=== PATIENT | female | born 1945 | race Caucasian/White ===

== ENCOUNTER 2021-10-09 19:17 | Inpatient (IN) | payer MEDICARE, OTHER ==
[~2021-10-09] VITALS: Ht 157.5 cm; Wt 60.3 kg
[~2021-10-09 19:17] MED LIST: ALEN70TA80 PO; ESOM20CA PO; FENO200C PO; FURO-145 PO; LOSA100T3 PO; PROM6.256 PO; SUCR1ORA15 PO
[2021-10-09 19:30] VITALS: BP 190/71
[2021-10-09 20:00] VITALS: BP 190/71
[2021-10-09] MEDS ORDERED: URSO250T12 PO (20:24)
[2021-10-09] MEDS ORDERED: DICY10CA13 PO (20:24)
[2021-10-09] MEDS ORDERED: ALENDRONATE 70 MG TABLET PO SCH (21:00)
[2021-10-09] MEDS ORDERED: ACETAMINOPHEN 325 MG TABLET PO PRN (21:30)
[2021-10-09] MEDS ORDERED: hydrALAZINE HCL 50 MG TABLET PO ONE (21:30)
[2021-10-09] MEDS ORDERED: CEFTRIAXONE 1 G in IV D5W 50 ML IV SCH (21:30)
[2021-10-09] MEDS ORDERED: ONDANSETRON HCL/PF 4 MG/2 ML VIAL IVP PRN (21:30)
[2021-10-09] MEDS ORDERED: MAG HYDROX/AL HYDROX/SIMETH 30 ML UDC PO PRN (21:30)
[2021-10-09] MEDS ORDERED: MEROPENEM 1 G VIAL IV ONE (21:40)
[2021-10-09] MEDS: ENOXAPARIN SODIUM 40 MG/0.4 ML DISP.SYRIN SQ SCH (21:47)
[2021-10-09] MEDS: MEROPENEM 1 G in IV NS 0.9% 100 ML IV SCH (21:53)
[2021-10-10] VITALS: BP 146/47
[2021-10-10 04:00] VITALS: BP 151/59
[2021-10-10] MEDS ORDERED: MEROPENEM 500 MG VIAL IV ONE ×2 (05:55→05:57)
[2021-10-10] MEDS: MEROPENEM 1 G in IV NS 0.9% 100 ML IV SCH ×3 (06:06→20:58)
[2021-10-10 06:26] LABS: BASOPHILS % (AUTO) 0.2 % (0.0-2.0); EOSINOPHILS % (AUTO) 0.3 % (0.0-6.0); HEMATOCRIT 27 % (33-45); HEMOGLOBIN 8.5 g/dL (11.5-14.8); LYMPHOCYTES # (AUTO) 0.5 K/uL (0.8-4.8); LYMPHOCYTES % (AUTO) 6.5 % (20.0-44.0); MEAN CORPUSCULAR HGB CONC 32 g/dl (31.0-36.0); MEAN CORPUSCULAR VOLUME 75 fL (82-100); MONOCYTES # (AUTO) 1.2 K/uL (0.1-1.30); MONOCYTES % (AUTO) 16.6 % (2.0-12.0); NEUTROPHILS # (AUTO) 5.4 K/uL (1.8-8.9); NEUTROPHILS % (AUTO) 76.4 % (43.0-81.0); PLATELET COUNT (AUTO) 209 K/uL (150-450); RED BLOOD CELL COUNT(AUTO) 3.58 MIL/uL (4.0-5.2); WHITE BLOOD COUNT (AUTO) 7.1 K/uL (4.3-11.0)
[2021-10-10 07:10] LABS: CHOLESTEROL 135 mg/dL (<200); HDL CHOLESTEROL 55 mg/dL (40-60); LDL 57 mg/dL (0-99); TRIGLYCERIDES 122 mg/dL (30-150)
[2021-10-10 07:18] LABS: CARBON DIOXIDE 24 mmol/L (21-32); CHLORIDE 105 mmol/L (98-107); GLUCOSE 89 mg/dL (74-106); MAGNESIUM 1.8 mg/dL (1.8-2.4); PHOSPHORUS 3.1 mg/dL (2.5-4.9); POTASSIUM 3.7 mmol/L (3.5-5.1); SODIUM SERUM 137 mmol/L (136-145); UREA NITROGEN, BLOOD 15 mg/dL (7-18)
[2021-10-10] MEDS ORDERED: SUCRALFATE 1 G/10 ML UDC PO SCH (07:30)
[2021-10-10 08:00] VITALS: BP 165/48
[2021-10-10] MEDS: PANTOPRAZOLE 40 MG TABLET.DR PO SCH (08:30)
[2021-10-10] MEDS: FUROSEMIDE 20 MG TABLET PO SCH (08:30)
[2021-10-10] MEDS: LOSARTAN POTASSIUM 50 MG TABLET PO SCH (08:31)
[2021-10-10] MEDS ORDERED: ESOMEPRAZOLE MAG TRIHYDRATE 20 MG CAPSULE.DR PO SCH (09:00)
[2021-10-10] MEDS ORDERED: Medication Not On Formulary EA (Fenofibrate,Micronized (Fenofibrate) 200 MG) PO SCH (09:00)
[2021-10-10 09:58] LABS: IRON, SERUM 17 ug/dl (50-175); TOTAL IRON BINDING CAPACITY 211 ug/dl (250-450)
[2021-10-10 10:08] LABS: FERRITIN 61 ng/mL (8-388)
[2021-10-10 11:51] LABS: BILIRUBIN,DIRECT 0.1 mg/dL (0.0-0.2); BILIRUBIN,TOTAL 0.4 mg/dL (0.2-1.0); TOTAL PROTEIN, SERUM 5.8 g/dL (6.4-8.2)
[2021-10-10 12:00] VITALS: BP 153/69
[2021-10-10] MEDS: SOD FERRIC GLUC 125 MG in IV NS 0.9% 100 ML IV SCH (15:22)
[2021-10-10] MEDS: AMLODIPINE BESYLATE 10 MG TABLET PO SCH (15:25)
[2021-10-10 15:57] LABS: LYMPHOCYTES % (MANUAL) 10 % (16-48); MONOCYTES % (MANUAL) 15 % (0-11.0); NEUTROPHILS % (MANUAL) 75 (42-76)
[2021-10-10 16:00] VITALS: BP 146/76
[2021-10-10 20:00] VITALS: BP_SYST 182; BP_SYST 194; BP_DIAS 56; BP_DIAS 63
[2021-10-10] MEDS ORDERED: hydrALAZINE HCL IV 20 MG VIAL IV PRN (23:00)
[2021-10-10] MEDS: ENOXAPARIN SODIUM 40 MG/0.4 ML DISP.SYRIN SQ SCH (23:02)
[2021-10-11] VITALS (7 sets, daily range): BP systolic 135–181; BP diastolic 47–68
[2021-10-11 06:51] LABS: BASOPHILS % (AUTO) 0.1 % (0.0-2.0); EOSINOPHILS % (AUTO) 0.4 % (0.0-6.0); HEMATOCRIT 26 % (33-45); HEMOGLOBIN 8.4 g/dL (11.5-14.8); LYMPHOCYTES # (AUTO) 0.7 K/uL (0.8-4.8); LYMPHOCYTES % (AUTO) 9.5 % (20.0-44.0); MEAN CORPUSCULAR HGB CONC 33 g/dl (31.0-36.0); MEAN CORPUSCULAR VOLUME 73 fL (82-100); MONOCYTES # (AUTO) 1.1 K/uL (0.1-1.30); MONOCYTES % (AUTO) 14.5 % (2.0-12.0); NEUTROPHILS # (AUTO) 5.5 K/uL (1.8-8.9); NEUTROPHILS % (AUTO) 75.5 % (43.0-81.0); PLATELET COUNT (AUTO) 235 K/uL (150-450); RED BLOOD CELL COUNT(AUTO) 3.52 MIL/uL (4.0-5.2); WHITE BLOOD COUNT (AUTO) 7.3 K/uL (4.3-11.0)
[2021-10-11 07:25] LABS: CALCIUM, SERUM 8.9 mg/dL (8.5-10.1); CREATININE 0.9 mg/dL (0.6-1.3); POTASSIUM 3.5 mmol/L (3.5-5.1)
[2021-10-11] MEDS: URSODIOL 300 MG CAPSULE PO SCH ×3 (09:00→17:21)
[2021-10-11] MEDS: FUROSEMIDE 20 MG TABLET PO SCH (10:01)
[2021-10-11] MEDS: PANTOPRAZOLE 40 MG TABLET.DR PO SCH (10:01)
[2021-10-11] MEDS: CARVEDILOL 6.25 MG TABLET PO SCH ×2 (10:02→17:21)
[2021-10-11] MEDS: AMLODIPINE BESYLATE 10 MG TABLET PO SCH (10:02)
[2021-10-11] MEDS: hydrALAZINE HCL 50 MG TABLET PO SCH ×3 (10:03→17:21)
[2021-10-11] MEDS: LOSARTAN POTASSIUM 50 MG TABLET PO SCH (10:03)
[2021-10-11] MEDS: MEROPENEM 1 G in IV NS 0.9% 100 ML IV SCH ×2 (10:05→21:37)
[2021-10-11] MEDS: SOD FERRIC GLUC 125 MG in IV NS 0.9% 100 ML IV SCH (14:23)
[2021-10-11] MEDS: ENOXAPARIN SODIUM 40 MG/0.4 ML DISP.SYRIN SQ SCH (22:16)
[2021-10-12] VITALS: BP 142/53
[2021-10-12 00:15] VITALS: BP 142/53
[2021-10-12 04:00] VITALS: BP 138/64
[2021-10-12 04:15] VITALS: BP 138/64
[2021-10-12 06:39] LABS: BASOPHILS % (AUTO) 0.1 % (0.0-2.0); EOSINOPHILS % (AUTO) 1.2 % (0.0-6.0); HEMATOCRIT 27 % (33-45); HEMOGLOBIN 8.5 g/dL (11.5-14.8); LYMPHOCYTES # (AUTO) 0.6 K/uL (0.8-4.8); LYMPHOCYTES % (AUTO) 9.7 % (20.0-44.0); MEAN CORPUSCULAR HGB CONC 32 g/dl (31.0-36.0); MEAN CORPUSCULAR VOLUME 75 fL (82-100); MONOCYTES % (AUTO) 16.2 % (2.0-12.0); NEUTROPHILS # (AUTO) 4.5 K/uL (1.8-8.9); NEUTROPHILS % (AUTO) 72.8 % (43.0-81.0); PLATELET COUNT (AUTO) 244 K/uL (150-450); RED BLOOD CELL COUNT(AUTO) 3.55 MIL/uL (4.0-5.2); WHITE BLOOD COUNT (AUTO) 6.1 K/uL (4.3-11.0)
[2021-10-12] MEDS ORDERED: SUCRALFATE 1 G TABLET PO SCH (07:30)
[2021-10-12] MEDS ORDERED: FERR325T23 PO (07:55)
[2021-10-12] MEDS ORDERED: AMLO-213 PO (07:55)
[2021-10-12] MEDS ORDERED: HYDR-4077 PO (07:55)
[2021-10-12] MEDS ORDERED: CARV6.252 PO (07:55)
[2021-10-12] MEDS: PANTOPRAZOLE 40 MG TABLET.DR PO SCH (08:15)
[2021-10-12] MEDS: URSODIOL 300 MG CAPSULE PO SCH ×2 (08:46→16:43)
[2021-10-12] MEDS: CARVEDILOL 6.25 MG TABLET PO SCH ×2 (08:47→16:44)
[2021-10-12] MEDS: AMLODIPINE BESYLATE 10 MG TABLET PO SCH (08:48)
[2021-10-12] MEDS: hydrALAZINE HCL 50 MG TABLET PO SCH ×3 (08:48→16:43)
[2021-10-12] MEDS: FUROSEMIDE 20 MG TABLET PO SCH (08:48)
[2021-10-12] MEDS: LOSARTAN POTASSIUM 50 MG TABLET PO SCH (08:49)
[2021-10-12 09:41] LABS: BAND % (MANUAL) 2 % (0.0-5.0); LYMPHOCYTES % (MANUAL) 7 % (16-48); MONOCYTES % (MANUAL) 14 % (0-11.0); NEUTROPHILS % (MANUAL) 77 (42-76)
[2021-10-12] MEDS: MEROPENEM 1 G in IV NS 0.9% 100 ML IV SCH (09:59)
[2021-10-12] MEDS ORDERED: CIPR500T5 PO (10:17)
[2021-10-12] MEDS: SOD FERRIC GLUC 125 MG in IV NS 0.9% 100 ML IV SCH (14:15)
[2021-10-12 16:44] VITALS: BP 160/54
== END 2021-10-12 18:47 | disposition home or self-care (01) | DRG 872 ==
LOC: TELE 19:17
PROVIDERS: ADMIT Nurse Practitioner Acute Care; ATTEND Internal Medicine
DX: A41.51 Sepsis due to Escherichia coli [E. coli] (principal); N39.0 Urinary tract infection, site not specified; N12 Tubulo-interstitial nephritis, not specified as acute or chronic; I16.0 Hypertensive urgency; K74.60 Unspecified cirrhosis of liver; D50.9 Iron deficiency anemia, unspecified; Z98.890 Other specified postprocedural states; Z85.42 Personal history of malignant neoplasm of other parts of uterus; Z85.3 Personal history of malignant neoplasm of breast; I11.0 Hypertensive heart disease with heart failure; I50.9 Heart failure, unspecified; S16.1XXA Strain of muscle, fascia and tendon at neck level, initial encounter; X58.XXXA Exposure to other specified factors, initial encounter; Y92.9 Unspecified place or not applicable; Z90.49 Acquired absence of other specified parts of digestive tract; Z95.1 Presence of aortocoronary bypass graft; Z79.83 Long term (current) use of bisphosphonates; Z79.899 Other long term (current) drug therapy
CPT/HCPCS: 36415; 76700-TC; 80048-TC; 80061-TC; 80076-TC; 82728-TC; 83540-TC; 83735-TC; 84100-TC; 85025-TC; 87040-TC; 87081-TC; 97116-TC; 97530-TC; G0378; J0360; J1650; J2185; J2916; J7030; J7050